=== PATIENT | female | born 1960 | race Caucasian/White ===

== ENCOUNTER 2023-12-17 09:55 | Outpatient (RCR) | payer OTHER, SELFPAY | END 2023-12-17 23:59 | disposition home or self-care (01) | LOC: RPT 09:55 | PROVIDERS: ATTENDING PHYSICIAN Nurse Practitioner Family; FAMILY PHYSICIAN Nurse Practitioner Primary Care | DX: M54.59 Other low back pain (principal); Z73.6 Limitation of activities due to disability | CPT/HCPCS: 97010; 97110; 97112; 97162; 97530 ==

== ENCOUNTER 2024-01-07 06:47 | Outpatient (RCR) | payer OTHER, SELFPAY | END 2024-01-07 23:59 | disposition home or self-care (01) | LOC: RPT 06:47 | PROVIDERS: ATTENDING PHYSICIAN Nurse Practitioner Family; FAMILY PHYSICIAN Nurse Practitioner Primary Care | DX: M54.59 Other low back pain (principal); M54.50 Low back pain, unspecified (principal); Z73.6 Limitation of activities due to disability | CPT/HCPCS: 97110; 97112 ==

== ENCOUNTER → 2024-01-14 07:10 | Outpatient (REF) | payer OTHER, SELFPAY | LOC: HWRAD 07:10 | PROVIDERS: ATTENDING PHYSICIAN Nurse Practitioner Family | DX: R59.1 Generalized enlarged lymph nodes (principal) | CPT/HCPCS: 76536 ==

== ENCOUNTER → 2024-02-18 08:44 | Outpatient (REF) | payer OTHER, SELFPAY | LOC: HWWDC 08:44 | PROVIDERS: ATTENDING PHYSICIAN Obstetrics & Gynecology; FAMILY PHYSICIAN Nurse Practitioner Primary Care | DX: Z12.31 Encounter for screening mammogram for malignant neoplasm of breast (principal) | CPT/HCPCS: 77063; 77067 ==

== ENCOUNTER → 2024-03-30 19:46 | Outpatient (REF) | payer BC, SELFPAY | LOC: PAVMRI 19:46 | PROVIDERS: ATTENDING PHYSICIAN Nurse Practitioner Primary Care | DX: M54.50 Low back pain, unspecified (principal); M47.816 Spondylosis without myelopathy or radiculopathy, lumbar region; M51.9 Unspecified thoracic, thoracolumbar and lumbosacral intervertebral disc disorder | CPT/HCPCS: 72148 ==

== ENCOUNTER → 2025-05-17 07:59 | Outpatient (REF) | payer OTHER, SELFPAY | LOC: HWWDC 07:59 | PROVIDERS: ATTENDING PHYSICIAN Nurse Practitioner Primary Care; REFERRING PHYSICIAN Obstetrics & Gynecology | DX: Z12.31 Encounter for screening mammogram for malignant neoplasm of breast (principal) | CPT/HCPCS: 77063; 77067 ==